=== PATIENT | female | born 1955 | race African-American/Black ===

== ENCOUNTER 2017-12-30 05:15 | Emergency (ER) | payer OTHER ==
[~2017-12-30] VITALS: Ht 162.6 cm; Wt 79.0 kg
[~2017-12-30 05:15] MED LIST: DOXYCYCLINE HY100 MG PO; ULTRAM50 MG PO
[2017-12-30] MEDS ORDERED: FLEXERIL5 MG PO (07:24)
[2017-12-30] MEDS ORDERED: ULTRAM50 MG PO (07:24)
[2017-12-30 07:51] VITALS: BP 122/83
== END 2017-12-30 08:03 | disposition home or self-care (01) ==
LOC: EME → EDBD 05:15 → EME 05:15
DX: S20.219A Contusion of unspecified front wall of thorax, initial encounter (principal); V43.02XA Car driver injured in collision with other type car in nontraffic accident, initial encounter; Y92.410 Unspecified street and highway as the place of occurrence of the external cause; G89.29 Other chronic pain
CPT/HCPCS: 71046; 93005; 99281; 99284